=== PATIENT | male | born 1970 | race Caucasian/White ===

== ENCOUNTER 2017-09-14 15:38 | Emergency (ER) | payer OTHER, BC ==
[~2017-09-14] VITALS: Ht 167.6 cm; Wt 81.4 kg
[~2017-09-14 15:38] MED LIST: CIPRO 500MG TA500 MG PO; COLACE 100100 MG/CAP PO; NORCO 325 MG-51 TAB PO; PYRIDIUM 100MG100 MG PO; PYRIDIUM200 M1 PO
[2017-09-14 15:40] VITALS: TEMP 98.3
[2017-09-14] MEDS ORDERED: PROTONIX20 MG PO (15:43)
[2017-09-14] MEDS ORDERED: CELEXA40 MG PO (15:43)
[2017-09-14 16:19] LABS: BASO # 0.1 (0.0-0.2); BASO % 0.6 % (0.0-2.0); EOS # 0.1 (0.0-0.7); EOS % 1.4 % (0-4.0); GRAN # 5.5 (1.4-6.5); GRAN % 68.8 % (42.2-75.2); HEMATOCRIT 43.7 % (42.0-52.0); LYMPH # 1.7 (1.2-3.4); MEAN CELL VOLUME 86 fl (80.0-100.0); MEAN CORPUSCULAR HEMOGLOBIN 32 pg (27.0-31.0); MEAN CORPUSCULAR HGB CONC 37 g/dl (33.0-37.0); MEAN PLATELET VOLUME 10.7 fl (7.4-10.4); MONO # 0.5 (0.1-0.6); MONO % 6.8 % (1.7-9.3); PLATELET COUNT 204 K/mm3 (130-400); RED BLOOD COUNT 5.06 M/mm3 (4.20-5.60)
[2017-09-14 16:28] LABS: ALBUMIN 4.4 gm/dL (3.5-5.0); BILIRUBIN,TOTAL 0.6 mg/dL (0.0-1.0); CALCIUM 9.4 mg/dL (8.4-10.2); CREATININE, serum 0.85 mg/dL (0.66-1.25); POTASSIUM 4.1 mmol/L (3.4-5.0); TOTAL PROTEIN 8.1 gm/dL (6.4-8.2)
[2017-09-14] MEDS ORDERED: NORCO 325 MG-51 TAB PO (17:13)
[2017-09-14 17:31] LABS: MUCOUS Present /lpf; PH 5 (5-8); SQUAMOUS EPITHELIAL None Seen /hpf; URINE APPEARANCE Clear; URINE BACTERIA None Seen /hpf; URINE BILIRUBIN Negative (NEGATIVE); URINE BLOOD Negative (NEGATIVE); URINE COLOR Yellow; URINE GLUCOSE 3+ (NEGATIVE); URINE KETONE Negative (NEGATIVE); URINE LEUKOCYTE ESTERASE Negative (NEGATIVE); URINE NITRATE Negative (NEGATIVE); URINE PROTEIN(semi-quant) Negative (NEGATIVE); URINE RBC 0-2 /hpf; URINE WBC 0-2 /hpf
[2017-09-14 17:50] LABS: COLLECTION METHOD CLEAN CATCH
[2017-09-14 18:08] VITALS: BP 135/90; PULSE 91
== END 2017-09-14 18:11 | disposition home or self-care (01) ==
LOC: COL.ER 15:38
PROVIDERS: Emergency Medicine
DX: S00.81XA Abrasion of other part of head, initial encounter (principal); R73.9 Hyperglycemia, unspecified; R10.9 Unspecified abdominal pain; K21.9 Gastro-esophageal reflux disease without esophagitis; F41.9 Anxiety disorder, unspecified; F32.9 Major depressive disorder, single episode, unspecified; Z23 Encounter for immunization; V89.2XXA Person injured in unspecified motor-vehicle accident, traffic, initial encounter
CPT/HCPCS: J3010; J7030; Q9967

== ENCOUNTER → 2020-02-28 | Outpatient (RCR) | payer BC, MEDICAID ==
[~2020-02-28] MED LIST changes: +CELEXA40 MG PO; +PROTONIX20 MG PO
== END | disposition home or self-care (01) ==
LOC: WSOT → WSPT 11-30 08:49 → WSOT 12-05 11:00 → WSC 12-16 10:30 → WSOT 12-20 13:00 → WSC 12-27 13:45 → WSPT 01-05 13:15 → WSOT 01-09 13:00 → WSC 01-13 10:00 → WSOT 02-08 15:45
DX: S78.112A Complete traumatic amputation at level between left hip and knee, initial encounter (principal); S52.502E Unspecified fracture of the lower end of left radius, subsequent encounter for open fracture type I or II with routine healing; G89.18 Other acute postprocedural pain; Z74.09 Other reduced mobility; Z78.9 Other specified health status

== ENCOUNTER 2020-05-15 09:30 | Outpatient (RCR) | payer BC, MEDICAID | END 2020-05-30 | disposition home or self-care (01) | LOC: WSOT | DX: M75.92 Shoulder lesion, unspecified, left shoulder (principal) ==

== ENCOUNTER 2020-05-30 13:00 | Outpatient (RCR) | payer BC, MEDICAID | END 2020-06-04 | disposition home or self-care (01) | LOC: WSC | DX: M77.8 Other enthesopathies, not elsewhere classified (principal) ==

== ENCOUNTER 2020-07-26 11:15 | Outpatient (RCR) | payer MEDICAID | END 2020-08-20 11:31 | disposition home or self-care (01) | LOC: WSC 11:15 | DX: M75.92 Shoulder lesion, unspecified, left shoulder (principal) ==

== ENCOUNTER → 2021-07-31 | Outpatient (CLI) | payer MEDICAID ==
[~2021-07-31] VITALS: Ht 167.6 cm; Wt 75.2 kg
[2021-07-31] VITALS (9 sets, daily range): BP systolic 112–132; BP diastolic 71–85; PULSE 73–82; TEMP 97.3
[~2021-07-31] MED LIST changes: +ABILIFY 15MG TA15 MG PO; +CRESTOR20 MG PO; +GLUCOPHAGE500 MG/TAB PO; +LOFIBRA54 MG PO; +NEURONTIN300 MG/CAP PO; +PRINIVIL20 MG PO; +TRULICITY4.5 MG/0.5 SQ
[2021-07-31 10:24] LABS: PROTHROMBIN TIME 11.1 SECONDS (9.7-12.8)
== END ==
LOC: COL.RAD 09:45
PROVIDERS: Radiology Diagnostic Radiology
DX: K76.0 Fatty (change of) liver, not elsewhere classified (principal); R79.89 Other specified abnormal findings of blood chemistry; R74.8 Abnormal levels of other serum enzymes
CPT/HCPCS: 27938; 27939; 32108